=== PATIENT | female | born 1960 | race Caucasian/White ===

== ENCOUNTER 2019-04-16 11:00 | Inpatient (IN) | payer OTHER ==
[~2019-04-16] VITALS: Ht 160 cm; Wt 77.6 kg
[2019-04-16 11:03] VITALS: Ht 160 cm; Wt 77.6 kg
--- NOTE | 2019-04-16 12:24 | NUR ---
PT PRESENTS TO THE ED AAOX 3 C/O L-SIDED CHEST PAIN X 1 WEEK AGO. PT STATES "I HAVE BEEN UNDER A LOT OF STRESS". PT DENIES SOB, WHALEY, N/V, DIAPHORESIS, DIZZINESS, WEAKNESS, AND ABD PAIN AT THIS TIME.
[2019-04-16 13:14] LABS: BASOPHIL % 1.2 % (0-2); PLATELET COUNT 213 x10^3mcL (130-400)
[2019-04-16 13:17] LABS: CARBON DIOXIDE 32.9 mmol/L (21-32); CHLORIDE SERUM 98 mmol/L (98-107); CREATININE SERUM 0.9 mg/dL (0.6-1.0); GFR1 > 60 mL/min; GLUCOSE SERUM 177 mg/dL (74-106); POTASSIUM SERUM 4.1 mmol/L (3.5-5.1); SODIUM SERUM 140 mmol/L (136-145)
[2019-04-16 13:21] LABS: ALBUMIN 4.2 g/dL (3.4-5.0); ALKALINE PHOSPHATASE 68 U/L (46-116); ALT/SGPT 40 U/L (14-59); AST/SGOT 21 U/L (15-37); BILIRUBIN TOTAL 0.36 mg/dL (0.20-1.00); CHOLESTEROL 212 mg/dL (<200); CHOLESTEROL/HDL RATIO 4.2; HDL CHOLESTEROL 50 mg/dL (40-60); LIPASE 190 IU/L (73-393); TOTAL PROTEIN, SERUM 8.1 g/dL (6.4-8.2); TRIGLYCERIDES 176 mg/dL (<150)
[2019-04-16 13:27] LABS: T3 TOTAL 0.98 ng/mL
[2019-04-16 13:28] LABS: FREE T4 1.08 ng/dL (0.76-1.46); FREE THYROXINE INDEX 2.9 ug/dL (1.4-4.5); T4(THYROXINE) 9.5 ug/dL (4.7-13.3)
[2019-04-16 14:55] LABS: microscopic required? NO
[2019-04-16 15:03] LABS: UA SPECIFIC GRAVITY 1.025 (1.005-1.035); urine erythrocyte NEGATIVE (NEGATIVE)
--- NOTE | 2019-04-16 15:27 | NUR ---
I SPOKE WITH NATASHA MAN PT WILL BE ADMITTED DX C/P TELE FLOOR
--- NOTE | 2019-04-16 16:15 | NUR ---
SBAR REPORT GIVEN TO GAUTAM TO ASSUME PT CARE, ALL QUESTIONS ANSWERED.
--- NOTE | 2019-04-16 16:39 | NUR ---
[facility] CAME IN DUE TO LEFT SIDED CHEST PAIN X1 WEEK AND HAD DIARRHEAL EPISODE X1 TODAY. AAOX4. DENIES HEADACHE/DIZZINESS. ABLE TO FOLLOW COMMANDS. NO SOB NOTED, LUNG SOUNDS CTA. STATED THAT SHE HAS 6/10 LEFT SIDED CHEST PAIN, NON-RADIATING, DESCRIBED ACHING AND CONSTANT. NSR ON THE MONITOR. DENIES ABDOMINAL DISCOMFORT AT THIS TIME. BOWEL SOUNDS ACTIVE. VOIDS. IV SITE ON THE RAC GAUGE 20 IS PATENT AND INTACT. SIDE RAILS UPX2. CALL LIGHT ON REACH. AT BEDSIDE. ENDORSED TO PRIMARY NURSE MELLISA FOR CONTINUITY OF CARE
[2019-04-16] MEDS ORDERED: ULTRAM50 MG PO (16:52)
[2019-04-16] MEDS ORDERED: ATORVASTATIN CA10 M1 PO (16:52)
[2019-04-16] MEDS ORDERED: VALSARTAN80 MG PO (16:53)
[2019-04-16] MEDS ORDERED: SYN15 PO (16:53)
[2019-04-16] MEDS ORDERED: HORIZANT300 MG PO (16:53)
[2019-04-16] MEDS ORDERED: HYDROCHLOROTHIA25 MG PO (16:53)
[2019-04-16] MEDS ORDERED: ZANAFLEX CAPSULE6 MG PO (16:54)
[2019-04-16] MEDS ORDERED: JARDIANCE25 MG PO (16:55)
[2019-04-16 17:01] VITALS: BP 125/73
[2019-04-16 17:08] LABS: MAGNESIUM 2.1 mg/dL (1.8-2.4)
[2019-04-16 17:50] LABS: AMPHETAMINE QUAL UR NONE DETECTED (See below)
--- NOTE | 2019-04-16 18:57 | NUR ---
DR KAUR MADE AWARE OF PATIENT'S ADMISSION. PER DR KAUR , PATIENT MAY HAVE OUTSIDE FOOD. DR KAUR MADE AWARE OF PATIENT'S UPDATED MEDICATIONS. PER DR KAUR, CONTINUE ALL MEDICATIONS. PATIENT DOESN'T HAVE THE CURRENT DOSE OF LEVOTHYROXINE. PATIENT WILL FF UP ON DOSE SOON SHE GETS THE MEDICATION RECORD.
[2019-04-16 20:13] VITALS: BP 109/52
--- NOTE | 2019-04-16 20:22 | NUR ---
RECEIVED PT FROM AM NURSE, MELLISA. PT AWAKE LAYING DOWN IN BED. PT AAOX4, FOLLOW COMMANDS AND MAKE NEEDS KNOWN. TELE# 16 [address] SR. PT C/O 4/10 LEFT SIDED CHEST PAIN THAT DOES NOT RADIATE. PT STATES PAIN IS TOLERABLE AND DOES NOT WANT ANY PAIN MEDS AT THIS TIME. PALPABLE PULSES TO ALL EXTREMETIES. NO EDEMA NOTED. LUNG SOUND CTA, BREATHING EVEN AND UNLABORED ON RA. ABD SOFT AND NONDISTEDED, ACTIVE BS X4 QUAD. DENIES N/V. C/O DIARRHEA. VOIDS FREELY, BRP. IV TO RAC PATENT AND INTACT. SITE WNL. NO ACUTE DISTRESS NOTED. BED AT LOWEST SETTING. SIDE RAILS X2 UP. CALL LIGHT WITHING REACH. WILL CONT TO [facility].
--- NOTE | 2019-04-16 22:08 | NUR ---
PT REFUSED TO HAVE INSULIN COVERAGE FOR BS OF 285, STATES SHE DOES NOTE TAKE INSULIN. EDUCATED PT ABOUT MEDICATION AND NEED FOR IT, PT STATES UNDERSTANDING BUT CONT TO REFUSE. WILL CONT TO MONITOR.
--- NOTE | 2019-04-17 00:48 | NUR ---
PT ASLEEP BUT EASILY AROUSABLE TO VERBAL STIMULI. BREATHING EVEN AND UNLABORED ON RA. NO ACUTE DISTRESS NOTED. SAFETY PRECAUTIONS IN PLACE. CALL LIGHT WITHING REACH. WILL CONT TO MONITOR.
[2019-04-17 05:46] VITALS: BP 102/54
--- NOTE | 2019-04-17 06:16 | NUR ---
PT SLEPT AT INTERVALS THROUGHOUT THE NIGTH, BREATHING EVEN AND UNLABORED ON RA. NO SIGNIFICANT CHANGE DURING SHIFT. PT STATES PAIN HAS GOTTEN BETTER. RATES LEFT SIDED CHEST PAIN AT 3/10. ALL NEEDS ASSESSED AND ATTENDED TO. SAFETY PRECAUTIONS IN PLACE. CALL LIGHT WITHING REACH. WILL CONT TO MONITOR AND ENDORSE CARE TO AM NURSE.
[2019-04-17 06:41] LABS: BASOPHIL % 1.6 % (0-2); PLATELET COUNT 193 x10^3mcL (130-400); RED CELL DISTRIBUTION WIDTH 13.5 % (11.5-14.5)
[2019-04-17 06:53] LABS: CALCIUM 8.8 mg/dL (8.5-10.1); CARBON DIOXIDE 30.9 mmol/L (21-32); CHLORIDE SERUM 104 mmol/L (98-107); CREATININE SERUM 0.9 mg/dL (0.6-1.0); GFR1 > 60 mL/min; GLUCOSE SERUM 177 mg/dL (74-106); POTASSIUM SERUM 4.2 mmol/L (3.5-5.1); SODIUM SERUM 143 mmol/L (136-145)
--- NOTE | 2019-04-17 07:23 | NUR ---
REPORT TAKEN FROM [facility] REPAIR HELPER NURSE AT THE BEDSIDE, PATIENT RESTING BUT WOKE FOR REPORT, AWAKE AND ALERT AT THIS TIME, DENIED PAIN OR ACUTE NEEDS, ADVISED TO CALL NURSE FOR ASSISTANCE.
[2019-04-17 07:49] VITALS: BP 122/66
--- NOTE | 2019-04-17 09:08 | NUR ---
ECHO IN PROGRESS AT THIS TIME
--- NOTE | 2019-04-17 09:41 | NUR ---
SPOKE TO PATIENT AND MADE AWARE OF PLAN FOR THE REST OF THE DAY, ECHO COMPLETE, PATIENT TOLERATED WELL.
--- NOTE | 2019-04-17 11:32 | NUR ---
ECHOCARDIOGRAM COMPLETED
[2019-04-17 11:35] VITALS: BP 111/54
--- NOTE | 2019-04-17 12:25 | NUR ---
PATIENT CONTINUED TO REFUSE INSULIN AND ACCU CHECK.
--- NOTE | 2019-04-17 15:03 | NUR ---
PATIENT SIGNED DISCHARGE PAPERWORK AT THE BEDSIDE. THE PATIENT REQUESTED AN OFF WORK NOTE. I SPOKE TO DR. KAUR ON THE PHONE, HE GAVE APPROVAL FOR OFF WORK FOR 1 WEEK. PATIENT GIVEN OFF WORK NOTE. IV DC'D FROM RIGHT AC, DRESSED WITH GAUZE AND TAPE, TELE RETURNED TO [place] STATION. PATIENT TAKEN TO EXIT BY RIKKI
== END 2019-04-17 15:12 | disposition home or self-care (01) | DRG 313 ==
LOC: ED 11:00 → DU 15:27
PROVIDERS: Specialist; ADMIT Internal Medicine
DX: R07.89 Other chest pain (principal); I10 Essential (primary) hypertension; E78.5 Hyperlipidemia, unspecified; E11.9 Type 2 diabetes mellitus without complications; E03.9 Hypothyroidism, unspecified; M48.02 Spinal stenosis, cervical region; M54.32 Sciatica, left side; M54.31 Sciatica, right side; L98.8 Other specified disorders of the skin and subcutaneous tissue; K21.9 Gastro-esophageal reflux disease without esophagitis; F41.8 Other specified anxiety disorders; I25.10 Atherosclerotic heart disease of native coronary artery without angina pectoris; Z90.49 Acquired absence of other specified parts of digestive tract; Z90.710 Acquired absence of both cervix and uterus; Z79.899 Other long term (current) drug therapy; Z79.84 Long term (current) use of oral hypoglycemic drugs
CPT/HCPCS: 82962; 83880; 84439; G0378; J7030